=== PATIENT | male | born 1955 | race Caucasian/White ===

== ENCOUNTER 2022-01-14 10:17 | Inpatient (IN) | payer OTHER, MEDICARE ==
[~2022-01-14] VITALS: Ht 193 cm; Wt 104.8 kg
[2022-01-14 10:47] LABS: BASOPHILS % 0.7 % (0.0-2.0); EOSINOPHILS % 0.1 % (0.0-5.0); HEMATOCRIT. 43.2 % (42.0-52.0); MEAN CORPUSCULAR HEMOGLOBIN 31.7 pg (28.0-32.0); MEAN PLATELET VOLUME 6.6 fl (7.4-10.4); MONOCYTES % 6.2 % (2.0-8.0); PLATELET 353 x1000/uL (130-400); RED BLOOD CELL COUNT 4.75 mill/uL (4.7-6.1); RED CELL DISTRIBUTION WIDTH 13.8 % (11.6-14.6)
[2022-01-14 10:54] LABS: CHLORIDE 103 mEq/L (98-107)
[2022-01-14 10:58] LABS: ETHANOL BLOOD < 10 mg/dL
[2022-01-14] MEDS ORDERED: CLONIDINE 0.1MG TABLET PO PRN (14:00)
[2022-01-14] MEDS ORDERED: DOCUSATE SODIUM 100MG CAPSULE PO PRN (14:00)
[2022-01-14] MEDS ORDERED: ACETAMINOPHEN 650MG/20.3ML UDC GT PRN (14:00)
[2022-01-14] MEDS ORDERED: IPRATROPIUM/ALBUTEROL 0.5-3(2.5)MG/3ML NEB HHN PRN (14:00)
[2022-01-14] MEDS ORDERED: DEXTROSE 50% WATER 50ML SYRINGE IV PRN (14:00)
[2022-01-14] MEDS ORDERED: GUAIFENESIN 200MG/10ML SUGAR FREE UDC PO PRN (14:00)
[2022-01-14] MEDS ORDERED: ONDANSETRON HCL 4MG/2ML INJ IV PRN (14:00)
[2022-01-14] MEDS ORDERED: HYDRALAZINE 20MG/ML VIAL IV PRN (14:15)
[2022-01-14] MEDS ORDERED: NITROGLYCERIN 0.4MG TABLET SL SL PRN ×2 (14:15→15:00)
[2022-01-14] MEDS: ASPIRIN 81MG EC TABLET PO SCH (14:26)
[2022-01-14] MEDS ORDERED: SODIUM CHLORIDE 0.9% 1,000 ML IV NR (14:30)
[2022-01-14 15:08] LABS: *AMPHETAMINES SCREEN URINE NEGATIVE (NEGATIVE); *BARBITURATES SCREEN URINE NEGATIVE (NEGATIVE); *BENZODIAZEPINES SCREEN URINE NEGATIVE (NEGATIVE); *COCAINE SCREEN URINE NEGATIVE (NEGATIVE); METHADONE URINE SCREEN NEGATIVE (NEGATIVE)
[2022-01-14 15:09] LABS: CANNABINOID URINE SCREEN PRESUMTIVE POSITIVE (NEGATIVE); OPIATES URINE SCREEN NEGATIVE (NEGATIVE); PHENCYCLIDINE URINE SCREEN NEGATIVE (NEGATIVE)
[2022-01-14 15:48] VITALS: BP 160/96
[2022-01-14 16:00] VITALS: BP 160/96
[2022-01-14] MEDS: CARVEDILOL 3.125 MG TABLET PO SCH ×2 (16:10→21:44)
[2022-01-14] MEDS: ENOXAPARIN 30MG/0.3ML SYR SUBCUT SCH (16:11)
[2022-01-14] MEDS: BLOOD SUGAR DIAGNOSTIC STRIP TEST SCH ×2 (16:31→21:47)
[2022-01-14] MEDS: INSULIN LISPRO 100 UNITS/ML SUBCUT SCH ×2 (16:31→21:00)
[2022-01-14 19:26] LABS: METHADONE URINE SCREEN NEGATIVE (NEGATIVE); OPIATES URINE SCREEN NEGATIVE (NEGATIVE)
[2022-01-14 19:27] LABS: *AMPHETAMINES SCREEN URINE NEGATIVE (NEGATIVE); *BARBITURATES SCREEN URINE NEGATIVE (NEGATIVE); *BENZODIAZEPINES SCREEN URINE NEGATIVE (NEGATIVE); *COCAINE SCREEN URINE NEGATIVE (NEGATIVE); CANNABINOID URINE SCREEN PRESUMTIVE POSITIVE (NEGATIVE); PHENCYCLIDINE URINE SCREEN NEGATIVE (NEGATIVE)
[2022-01-14 20:00] VITALS: BP 127/81
[2022-01-14] MEDS: ATORVASTATIN CALCIUM 40MG TABLET PO SCH (21:44)
[2022-01-15] VITALS: BP 104/65
[2022-01-15 04:00] VITALS: BP 117/74
[2022-01-15] MEDS: ENOXAPARIN 30MG/0.3ML SYR SUBCUT SCH ×2 (06:42→16:27)
[2022-01-15] MEDS: INSULIN LISPRO 100 UNITS/ML SUBCUT SCH ×4 (06:43→21:00)
[2022-01-15] MEDS: BLOOD SUGAR DIAGNOSTIC STRIP TEST SCH ×4 (06:43→21:00)
[2022-01-15 08:02] VITALS: BP 160/98
[2022-01-15 08:12] LABS: CHLORIDE 106 mEq/L (98-107)
[2022-01-15 08:26] LABS: LDL CHOLESTEROL 118 mg/dL (5-100)
[2022-01-15] MEDS: CARVEDILOL 3.125 MG TABLET PO SCH ×2 (08:26→22:22)
[2022-01-15] MEDS: ASPIRIN 81MG EC TABLET PO SCH (08:26)
[2022-01-15 08:27] LABS: BASOPHILS % 0.6 % (0.0-2.0); EOSINOPHILS % 0.7 % (0.0-5.0); HEMATOCRIT. 41.9 % (42.0-52.0); HEMOGLOBIN. 14.7 g/dL (14.0-18.0); LYMPHOCYTES % 39.3 % (20.0-50.0); MEAN CORPUSCULAR HEMOGLOBIN 32.1 pg (28.0-32.0); MEAN CORPUSCULAR VOLUME 91.5 fL (80.0-94.0); MEAN PLATELET VOLUME 6.8 fl (7.4-10.4); MONOCYTES % 10.2 % (2.0-8.0); NEUTROPHILS % 49.2 % (40.0-76.0); PLATELET 291 x1000/uL (130-400); RED BLOOD CELL COUNT 4.58 mill/uL (4.7-6.1); RED CELL DISTRIBUTION WIDTH 13.9 % (11.6-14.6)
[2022-01-15 08:28] LABS: HDL CHOLESTEROL 29 mg/dL (40-59)
[2022-01-15] MEDS: AMLODIPINE 5MG TABLET PO SCH (10:41)
[2022-01-15 11:48] VITALS: BP 127/81
[2022-01-15 15:47] VITALS: BP 145/90
[2022-01-15] MEDS: PANTOPRAZOLE 40MG DR TABLET PO SCH (16:14)
[2022-01-15] MEDS ORDERED: PANTOPRAZOLE 40MG DR TABLET PO NR (16:15)
[2022-01-15] MEDS: LEVOTHYROXINE SODIUM 25MCG TABLET PO SCH (16:27)
[2022-01-15 20:00] VITALS: BP 142/89
[2022-01-15] MEDS: ATORVASTATIN CALCIUM 40MG TABLET PO SCH (22:21)
[2022-01-16] VITALS: BP 100/47
[2022-01-16 04:00] VITALS: BP 124/84
[2022-01-16] MEDS: BLOOD SUGAR DIAGNOSTIC STRIP TEST SCH (06:17)
[2022-01-16] MEDS: LEVOTHYROXINE SODIUM 25MCG TABLET PO SCH (06:17)
[2022-01-16] MEDS: PANTOPRAZOLE 40MG DR TABLET PO SCH (06:17)
[2022-01-16] MEDS: INSULIN LISPRO 100 UNITS/ML SUBCUT SCH (06:17)
[2022-01-16] MEDS: ENOXAPARIN 30MG/0.3ML SYR SUBCUT SCH ×2 (06:19→17:08)
[2022-01-16 06:57] LABS: BASOPHILS % 0.6 % (0.0-2.0); EOSINOPHILS % 0.6 % (0.0-5.0); HEMATOCRIT. 42.9 % (42.0-52.0); HEMOGLOBIN. 14.8 g/dL (14.0-18.0); LYMPHOCYTES % 39.9 % (20.0-50.0); MEAN CORPUSCULAR HEMOGLOBIN 31.1 pg (28.0-32.0); MEAN CORPUSCULAR VOLUME 90.2 fL (80.0-94.0); MEAN PLATELET VOLUME 6.8 fl (7.4-10.4); MONOCYTES % 10.6 % (2.0-8.0); NEUTROPHILS % 48.3 % (40.0-76.0); PLATELET 342 x1000/uL (130-400); RED BLOOD CELL COUNT 4.76 mill/uL (4.7-6.1)
[2022-01-16 07:02] LABS: CHLORIDE 105 mEq/L (98-107)
[2022-01-16 07:55] VITALS: BP 132/87
[2022-01-16] MEDS: ASPIRIN 81MG EC TABLET PO SCH (08:44)
[2022-01-16] MEDS: CARVEDILOL 3.125 MG TABLET PO SCH ×2 (08:44→21:11)
[2022-01-16] MEDS: AMLODIPINE 5MG TABLET PO SCH (08:44)
[2022-01-16 12:03] VITALS: BP 139/75
[2022-01-16] MEDS ORDERED: POLYETHYLENE GLYCOL 3350 (17GM) 1 DOSE PACK PO NR (15:15)
[2022-01-16] MEDS ORDERED: LACTULOSE 20G/30ML UDC PO NR (15:15)
[2022-01-16 15:32] VITALS: BP 150/88
[2022-01-16] MEDS: PANTOPRAZOLE SODIUM 40 MG/VIAL IV SCH (15:55)
[2022-01-16] MEDS: DOCUSATE SODIUM SUGAR FREE 100MG/10ML UDC NG SCH (15:56)
[2022-01-16 20:00] VITALS: BP 134/94
[2022-01-16] MEDS: ATORVASTATIN CALCIUM 40MG TABLET PO SCH (21:10)
[2022-01-17] VITALS: BP 104/60
[2022-01-17 04:00] VITALS: BP 119/76
[2022-01-17] MEDS: ENOXAPARIN 30MG/0.3ML SYR SUBCUT SCH (05:46)
[2022-01-17] MEDS: LEVOTHYROXINE SODIUM 25MCG TABLET PO SCH (05:52)
[2022-01-17 06:10] LABS: BASOPHILS % 0.6 % (0.0-2.0); EOSINOPHILS % 0.8 % (0.0-5.0); HEMATOCRIT. 39.1 % (42.0-52.0); HEMOGLOBIN. 13.7 g/dL (14.0-18.0); LYMPHOCYTES % 40.1 % (20.0-50.0); MEAN CORPUSCULAR HEMOGLOBIN 31.7 pg (28.0-32.0); MEAN CORPUSCULAR VOLUME 90.4 fL (80.0-94.0); MEAN PLATELET VOLUME 7.1 fl (7.4-10.4); MONOCYTES % 9.5 % (2.0-8.0); PLATELET 292 x1000/uL (130-400); RED BLOOD CELL COUNT 4.32 mill/uL (4.7-6.1)
[2022-01-17 07:13] LABS: CHLORIDE 106 mEq/L (98-107)
[2022-01-17 08:00] VITALS: BP 134/78
[2022-01-17] MEDS ORDERED: REGADENOSON 0.4 MG/5 ML IV ONE (08:30)
[2022-01-17] MEDS: DOCUSATE SODIUM SUGAR FREE 100MG/10ML UDC NG SCH (09:00)
[2022-01-17] MEDS: CARVEDILOL 3.125 MG TABLET PO SCH (09:00)
[2022-01-17] MEDS: ASPIRIN 81MG EC TABLET PO SCH (09:00)
[2022-01-17] MEDS: AMLODIPINE 5MG TABLET PO SCH (09:00)
[2022-01-17] MEDS: PANTOPRAZOLE SODIUM 40 MG/VIAL IV SCH (09:01)
[2022-01-17] MEDS ORDERED: AMLO5TAB88 PO (11:05)
[2022-01-17] MEDS ORDERED: LEVO25TA7 PO (11:05)
[2022-01-17] MEDS ORDERED: ASPI-1406 PO (11:05)
[2022-01-17] MEDS ORDERED: PROT40 MT (11:05)
[2022-01-17] MEDS ORDERED: LIP40 PO (11:05)
[2022-01-17] MEDS ORDERED: COR3 PO (11:05)
[2022-01-17] MEDS ORDERED: BARIUM SULFATE 176 GM SUSP.RECON ONE (12:23)
== END 2022-01-17 15:45 | DRG 313 ==
LOC: ER 10:17 → 8WST 13:37 → EDBEDREQ 13:54 → EDBEDREQTM 13:54 → ENRESERV 14:01
PROVIDERS: ADMIT Internal Medicine; ATTEND Internal Medicine
DX: R07.9 Chest pain, unspecified (principal); I45.10 Unspecified right bundle-branch block; E03.9 Hypothyroidism, unspecified; I25.10 Atherosclerotic heart disease of native coronary artery without angina pectoris; G47.33 Obstructive sleep apnea (adult) (pediatric); F17.210 Nicotine dependence, cigarettes, uncomplicated; I10 Essential (primary) hypertension; K22.0 Achalasia of cardia; Z20.822 Contact with and (suspected) exposure to COVID-19; D72.829 Elevated white blood cell count, unspecified; Z53.20 Procedure and treatment not carried out because of patient's decision for unspecified reasons; Z59.00 Homelessness unspecified; Z95.5 Presence of coronary angioplasty implant and graft; Z82.49 Family history of ischemic heart disease and other diseases of the circulatory system
CPT/HCPCS: 36415; 71045; 74220; 80048; 80053; 80061; 80305; 80320; 82962; 83036; 83735; 83880; 84439; 84443; 84484; 85025; 87426; 93005; 93306; 99285; C1893; C9113; J1650; J2405; G0480

== ENCOUNTER 2022-01-18 12:03 | Emergency (ER) | payer OTHER, MEDICARE ==
[~2022-01-18] VITALS: Ht 188 cm; Wt 96.0 kg
[~2022-01-18 12:03] MED LIST: AMLO5TAB88 PO; ASPI-1406 PO; COR3 PO; LEVO25TA7 PO; LIP40 PO; PROT40 MT
[2022-01-18 12:33] LABS: BASOPHILS % 0.3 % (0.0-2.0); EOSINOPHILS % 0.1 % (0.0-5.0); HEMATOCRIT. 40.9 % (42.0-52.0); HEMOGLOBIN. 13.8 g/dL (14.0-18.0); LYMPHOCYTES % 22.1 % (20.0-50.0); MEAN CORPUSCULAR HEMOGLOBIN 31.2 pg (28.0-32.0); MEAN CORPUSCULAR VOLUME 92.5 fL (80.0-94.0); MEAN PLATELET VOLUME 6.7 fl (7.4-10.4); MONOCYTES % 8.7 % (2.0-8.0); NEUTROPHILS % 68.8 % (40.0-76.0); PLATELET 317 x1000/uL (130-400); RED BLOOD CELL COUNT 4.43 mill/uL (4.7-6.1)
[2022-01-18 12:41] LABS: CHLORIDE 103 mEq/L (98-107)
[2022-01-18 16:10] VITALS: BP 135/65
== END 2022-01-18 16:32 | disposition home or self-care (01) ==
LOC: ER 12:37
DX: R07.89 Other chest pain (principal); I10 Essential (primary) hypertension
CPT/HCPCS: 36415; 71045; 80053; 83880; 84484; 85025; 93005; 99285